=== PATIENT | male | born 1950 | race Caucasian/White ===

== ENCOUNTER 2017-01-11 20:59 | Inpatient (IN) | payer MEDICARE, OTHER ==
--- NOTE | ~2017-01-11 | A ---
[facility] Nutrition Therapy DATE: 01/13/17 Patient: HARLAN MOY Physician: DOLORES Address: [facility] Room/Bed: [address] [place] [address], Zip: [place] [address] Admit Date: 01/11/17 Date of : 48 Height: 5 2.20 Weight: 92 42 NUTRITIONAL ASSESSMENT: REASON: ENTERAL NUTRITION ASSESSMENT 66 yo male admitted for PNA PMH: Recurrent aspiration PNA, s/p PEG, osteoporosis, CP, profound MR, hypothyroidism, constipation, hemorrhiods Anthropometrics: Ht: 62.5" Wt: 42 kg BMI: 16.7 Labs: K+ 3.4 BUN 8 Creat 0.5 Ca++ 7.7 Meds: Dilantin, bisacodyl, protonix, zofran, miralax, MVI with minerals, senokot, Synthroid (via G-tube) I/O & Bowel function: 3360/13, last BM 01/12, PEG Skin Integrity: Multiple scabs scattered Redness to BL heels Edema: None noted Estimated Nutrition Needs: 0679-1323 kcals (35-40 kcals/kg) 59-76 grams protein (1.4-1.8 grams/kg) Home enteral nutrition regimen: Osmolite 1.2 @ 110 ml/hr x 10 hrs (8A-11A) AND (1P-8P) Provides: 1320 kcals/ 61 grams protein/ 902 mL free H20 Assessment: Chart reviewed, events noted. Cut Off patient admitted for PNA with h/o recurrent aspiration. Pt receives all nutrition via PEG tube. Per information in chart, the pt receives the enteral regimen as noted above. Pt has increased nutrient needs with PNA and low body weight (BMI 16.7). Of note, the pt typically receives Osmolite 1.2 and has been ordered Osmolite 1.5 at [facility]. RD recommending to continue Osmolite 1.5 while at [facility]. Please see recommendations below. Dx: Increased nutrient needs RT PMH, low body weight, Dx AEB BMI 16.7, 76% IBW. Intervention: 1. Enteral nutrition [facility] Nutrition Therapy DATE: 01/13/17 Patient: HARLAN MOY Physician: NIGKUS Address: [facility] Room/Bed: [address] [place] [address], Zip: [place] [address] Admit Date: 01/11/17 Date of : 48 Height: 5 2.20 Weight: 92 42 Monitoring, Evaluation and Goals: 1. Enteral nutrition; provide >80% goal volume 2. Labs; WNL 3. Weight; prevent weight loss, promote gradual weight gain towards healthy BMI 4. Skin; prevent breakdown Recommendations: 1. Recommend using Osmolite 1.5 while the pt is at [facility] to provide additional kcals/ mL. Continue the pt's enteral schedule, and decrease Osmolite 1.5 to 100 mL/hr from (8A-11A) and (1P-8P). This will provide: 1500 kcals/ 63 grams protein/ 760 mL free H20 PLEASE NOTE: ENTERAL NUTRIITON SHOULD BE HELD FOR ONE HOUR BEFORE AND ONE HOUR AFTER ADMINISTRATION OF SYNTHROID AND DILANTIN MEDICATIONS. RD INFORMED RN OF THIS 2. Ensure the HOB is upright at a minimum of 30-45 degrees during EN administration. Respectfully, TAY ARANGO RD, LD Food and Nutritional Services [facility] cc: client file
--- NOTE | ~2017-01-11 | CR72 ---
[facility] A Service of [facility] RADIOLOGY TEXT RESULTS PATIENT: HARLAN MOY LOCATION: [facility] 331- : 48 UNIT #: [id number] AGE: [address]: Soni Colindres MD SEX: M ORDER DR: [id number] [facility] [address] [facility]. [place], [place] [address] [id number] I MR#: [id number] Acc #: [id number] NAME: HARLAN MOY : 1950 SEX: M STUDY DATE/TIME: 01/20/2017 6:15 UNIT: [address] ROOM: [facility] STUDY DESCRIPTION: CR Chest Single View Portable Attending Physician: Soni Colindres M.D. Ordering Physician: Pérez Rosas M.D. Primary Care Physician: No Primary Care Physician MEDICAL IMAGING REPORT This report is preliminary unless electronic signature is present EXAM AP portable chest, 01/20/2017. HISTORY Pneumonia, fever. Follow up inpatient cardiopulmonary status. TECHNIQUE AP portable chest x-ray. FINDINGS The exam shows persistent patchy infiltrates in the right mid and lower lung and left medial lung base, slightly improved since the previous study of 01/14/2017. No visible airspace consolidation or pleural effusion. IMPRESSION Diffuse pulmonary infiltrates with slight radiographic improvement since 01/14/2017. Dictated by... Dionisio Cook M.D. THIS IS AN ELECTRONICALLY VERIFIED REPORT Dionisio Cook M.D. at 01/20/2017 3:54 PM DAHLIAW/gerry TD: 01/20/2017 09:47 JOB #: [id number] MEDICAL IMAGING REPORT Page 1 of 1 COPY
--- NOTE | ~2017-01-11 | HP ---
Unit #: [id number] #: [id number] Patient: HARLAN LOYA [id number] [place] [id number] [facility]. [place], [place] [address] [id number] I MR#: [id number] NAME: HARLAN LOYA. ROOM: 331 Age: 66 Sex: M Admission Date: 01/11/2017 : 1950 Attending Physician: Soni Colindres M.D. Primary Care Physician: No Primary Care Physician HISTORY AND PHYSICAL CHIEF COMPLAINT Fever, hypoxia, and pneumonia. HISTORY OF PRESENT ILLNESS Mr. Loya is a 66-year-old male who is a resident of [facility], has cerebral palsy and mental retardation. Patient is not able to provide any history. Most of the history was taken from the chart and ER notes. The patient resides at [facility]. He has history of cerebral palsy, mental retardation, dysphagia, hypothyroidism, seizure disorder. Patient most of the time goes to [facility]. This is his first admission to [facility]. Patient was diagnosed with pneumonia in [facility] a day ago and then Zosyn was started. Patient continued to have high fever and had respiratory distress. The patient was sent to ER. Patient was found to have temperature of 101 and patient was hypoxic. A chest x-ray showed bilateral lower lobe pneumonia. Patient is being admitted to telemetry unit. PAST MEDICAL HISTORY 1. Seizure disorder. 2. Cerebral palsy/mental retardation. 3. Hypothyroidism. 4. Dysphagia. 5. History of aspiration pneumonia in the past. 6. Anemia. ALLERGIES Patient allergic to hepatitis B virus vaccine. HOME MEDICATIONS 1. Nexium 40 mg at bedtime. 2. Dulcolax 10 mg at bedtime. 3. Phenobarbital 97.2 mg daily. 4. Acetaminophen 650 mg q.8. 5. Baclofen 5 mg daily. 6. Multivitamin daily. 7. Reglan 5 mg daily. 8. MiraLax 17 g twice a day. 9. Dilantin-125 suspension 100 mg daily. 10. Senna 8.6 mg daily. 11. Levoxyl 200 mcg daily. 12. Titus [place] twice a day. 13. Atrovent Nasal [place] p.r.n. Unit #: [id number] #: [id number] Patient: HARLAN LOYA SOCIAL HISTORY Again, patient is a resident of [facility]. No history of smoking. No alcohol or drug abuse. PAST SURGICAL HISTORY History of G tube placement. REVIEW OF SYSTEMS As per history of presenting illness, not able to get any other information. It is not available. PHYSICAL EXAMINATION GENERAL: The patient is lying in bed. VITAL SIGNS: Blood pressure is 137/67, respiratory rate 18, pulse 85, temperature 98.9, T-max 101.1 on admission. HEENT: Head is normocephalic. CHEST: Fair air entry, decreased at the bases. Few rales are heard. CARDIOVASCULAR: S1, S2 positive. Regular rhythm. ABDOMEN: Soft. EXTREMITIES: Negative edema. The patient does have contractures. DIAGNOSTIC STUDIES LABORATORY: Lab workup so far shows WBC 7.4, hemoglobin 11, hematocrit 32.8, platelet count 166,000. ABG was done on 2 L which shows 7.45 pH, pCO2 of 38.7, pO2 of 54.6, oxygen saturation is 90%. Sodium 134, potassium 3.6, chloride 98, BUN 14, creatinine 0.6. Liver enzymes are slightly elevated. AST 54, ALT 42, alkaline phosphatase 103. Lactic acid elevated to 2.8. Urinalysis with 2+ protein, 5-10 RBCs, 5-10 WBCs, no bacteria. IMAGING: Chest x-ray was done which shows bilateral lower lobe infiltrate. ASSESSMENT The patient is being admitted to telemetry unit with: 1. Fever: T-max of 101.1. 2. Pneumonia: Healthcare-facility acquired pneumonia bilateral lower lobe. 3. Acute hypoxic respiratory failure secondary to above. 4. Seizure disorder. 5. Hypothyroidism. 6. Cerebral palsy and mental retardation. PLAN Admit to telemetry unit. IV antibiotics are starting which is vancomycin, tobramycin, and Zosyn. Dr. David Robles is being consulted. Home medications have been reviewed and adjusted. O2 to keep saturations above 94% is starting. Labs will be repeated tomorrow morning. Please refer to progress note for further orders. The patient's code status is DNR. Dictated by Soni Colindres M.D. MICHELL/ Unit #: [id number] #: [id number] Patient: HARLAN LOYA TD: 01/12/2017 10:12 JOB #: [id number] HISTORY AND PHYSICAL Page 1 of 1 X Soni Colindres MD HISTORY AND PHYSICAL
--- NOTE | ~2017-01-11 | EKG ---
PATIENT: HARLAN MOY UNIT #: [id number] Ventricular Rate: 81 BPM Atrial Rate: 81 BPM P-R Interval: 132 ms QRS Duration: 86 ms Q-T Interval: 374 ms QTC Calculation(Bezet): 434 ms P Sharon: 76 degrees Calculated R Sharon: 101 degrees Calculated T Sharon: 81 degrees Diagnosis Line: Sinus rhythm with Premature atrial complexes Diagnosis Line: Rightward axis Diagnosis Line: Septal infarct , age undetermined Diagnosis Line: Borderline ECG Diagnosis Line: No previous ECGs available Diagnosis Line: Confirmed by CYNTHIA ISRAEL MD ([id number]) on 01/12/2017 Diagnosis Line: 4:40:46 PM INTERPRETING MD: LINDY PINON
--- NOTE | ~2017-01-11 | DS ---
Unit #: [id number] #: [id number] Patient: ARON LOYA [id number] [address] [address] [id number] I MR#: [id number] NAME: ARON LOYA ROOM: 331 Age: 66 Sex: M Admission Date: 01/11/2017 : 1950 Discharge Date: 01/20/2017 Attending Physician: Soni Colindres M.D. Primary Care Physician: No Primary Care Physician DISCHARGE SUMMARY FINAL DIAGNOSES 1. Acute respiratory failure, resolved. 2. Aspiration pneumonia. 3. Pulmonary hypertension. 4. Right ventricular systolic pressure elevated to 55. 5. Systolic ejection fraction is 60%. 6. Seizure disorder. 7. Hypothyroidism. 8. Mental retardation. 9. [place] resident. CONSULTANTS Dr. David Robles from pulmonary services. DIAGNOSTIC DATA CARDIOVASCULAR: Echocardiogram done during hospitalization showed left ventricular systolic function is normal and ejection fraction is 60%, mild concentric left ventricular hypertrophy, mild to moderate mitral valve prolapse, mild to moderate aortic regurgitation, mild to moderate risk tricuspid regurgitation, mild pulmonic valve regurgitation, right ventricular systolic pressure 55 mmHg. LABORATORY: Sodium 133, potassium 4.8, chloride 101, BUN 20, creatinine 0.7, calcium 8.2, magnesium 1.9, BNP 23 on discharge. On 01/15/2017 it was 326. CBC shows white blood cell count 6.8, hemoglobin 10.1, hematocrit 30.6, platelets 364. Blood culture was no growth. Sputum culture showed 4+ normal respiratory barry. Urine culture was no growth for 24 hours. IMAGING: Chest x-ray done on 01/20/2017 showed diffuse pulmonary infiltrate with slight radiographic improvement since 01/14/2017. DISCHARGE MEDICATIONS 1. Augmentin 875 mg p.o. b.i.d. 2. Continue the rest of the home medications. HOSPITAL COURSE Mr. Aron Loya is a 66-year-old male who is a resident of [facility], with multiple medical problems. He was admitted because of acute hypoxic respiratory failure secondary to pneumonia. The patient had bilateral pneumonia. He was started on broad spectrum IV antibiotics. Slowly it has been tapered. The patient received vancomycin, Zosyn and tobramycin. IV antibiotics are being discontinued and Augmentin is being started, Augmentin 875 mg p.o. b.i.d. for 4 more days. On room air the Unit #: [id number] #: [id number] Patient: ARON LOYA patient's pules oximetry is 96%. The patient is stable and is being transferred to [facility] in stable condition. PHYSICAL EXAMINATION VITALS: At discharge, blood pressure 143/85, respiratory rate 22, pulse 92, temperature 99.1. CHEST: Fair air entry. Decreased at the bases. HEART: S1 and S2 positive. Tachycardia. ABDOMEN: Soft. DISPOSITION The patient is being discharged to [facility] in stable condition. FOLLOWUP 1. Follow up with Dr. David Robles in one week. 2. Chest x-ray to be repeated in one week. Dictated by... Rodrigo Anguiano TD: 01/20/2017 13:10 JOB #: [id number] DISCHARGE SUMMARY Page 1 of 1 X Soni Colindres MD X DISCHARGE SUMMARY
--- NOTE | ~2017-01-11 | CR72 ---
[facility] A Service of [facility] RADIOLOGY TEXT RESULTS PATIENT: HARLAN MOY LOCATION: [place] [address] : [birth year] UNIT #: [id number] AGE: [address]: Soni Colindres MD SEX: M ORDER DR: [id number] [facility] [address] [facility]. [place], [place] [address] [id number] MR#: [id number] Acc #: [id number] NAME: HARLAN MOY : 1950 SEX: M STUDY DATE/TIME: 01/11/2017 21:19 UNIT: [place]AC[place] ROOM: STUDY DESCRIPTION: CR Chest Single View Portable Attending Physician: Trenton Rush M.D. Ordering Physician: Trenton Rush M.D. Primary Care Physician: No Primary Care Physician MEDICAL IMAGING REPORT This report is preliminary unless electronic signature is present EXAM Portable chest 01/11/2017 HISTORY Shortness of breath and fever beginning 1 day ago. FINDINGS There is no prior chest radiograph for comparison. The exam is limited by patient rotation. The heart is normal in size. There is airspace consolidation in the lower lobes bilaterally characteristic of bibasilar pneumonia. There are no pleural effusions. IMPRESSION 1. No prior chest radiograph for comparison. 2. Exam is limited by poor radiographic technique with patient rotation. 3. Infiltrates at the lung bases suggesting bibasilar pneumonia. Dictated by... Caleb Amador M.D. THIS IS AN ELECTRONICALLY VERIFIED REPORT Caleb Amador M.D. at 01/12/2017 1:15 PM NATALIA/albina TD: 01/11/2017 23:55 JOB #: [id number] MEDICAL IMAGING REPORT Page 1 of 1 COPY
--- NOTE | ~2017-01-11 | CR72 ---
[facility] A Service of [facility] RADIOLOGY TEXT RESULTS PATIENT: HARLAN MOY LOCATION: [facility] : 48 UNIT #: [id number] AGE: [address]: Soni Colindres MD SEX: M ORDER DR: [id number] [place] [id number] [facility]. [place], [place] [address] [id number] I MR#: [id number] Acc #: [id number] NAME: HARLAN MOY. : 1950 SEX: M STUDY DATE/TIME: 01/14/2017 14:18 UNIT: [address] ROOM: [address] [place] [address] DESCRIPTION: CR Chest Single View Portable Attending Physician: Soni Colindres M.D. Ordering Physician: Soni Colindres M.D. Primary Care Physician: Primary Care Physician No MEDICAL IMAGING REPORT This report is preliminary unless electronic signature is present EXAM Chest portable 01/14 COMPARISON 01/11/2017 HISTORY SUPPLIED Shortness of breath, cough and congestion beginning 01/10/2017 TECHNIQUE/COMPARISON An AP portable view is obtained and compared directly to the study of 01/11/2017. FINDINGS Cardiac size is stable. Lungs show evidence of underlying chronic lung disease. The infiltrate in the right base is increased with a new infiltrate in the left base. CONCLUSION Interim increase in right lower lobe infiltrate. New left lower lobe infiltrate. Dictated by... Esdras Cesar M.D. THIS IS AN ELECTRONICALLY VERIFIED REPORT Esdras Cesar M.D. at 01/16/2017 2:20 PM THOMASK/paolo TD: 01/14/2017 22:28 JOB #: [id number] MEDICAL IMAGING REPORT [facility] A Service of [facility] RADIOLOGY TEXT RESULTS PATIENT: HARLAN MOY LOCATION: [facility] : 48 UNIT #: [id number] AGE: [address]: Soni Colindres MD SEX: M ORDER DR: Page 1 of 1 COPY
--- NOTE | ~2017-01-11 | FU ---
[facility] Nutrition Therapy DATE: 01/17/17 Patient: HARLAN MOY Physician: DOLORES Address: [facility] Room/Bed: [address] [place] [address], Zip: [place] [address] Admit Date: 01/11/17 Date of : 48 Height: 5 2.20 Weight: 88 40 NUTRITION MONITORING/FOLLOW-UP: Reason: Enteral nutrition follow up Anthropometrics: Ht: 62.5" Adm wt: 42 kg BMI: 16.7 IBW: 55 kg, 76% IBW Wt 01/17: 40 kg Labs: Ca++ 8.1 Meds: Dilantin (@ 0900), bisacodyl, protonix, zofran, senokot, MVI with minerals, miralax, synthroid (GT @ 0600) I&O's: 1442/14, last BM 01/16 Skin: No changed noted Edema: BLE trace Estimated Nutrition Needs: 1885-7224 kcals (35-40 kcals/kg) 59-76 grams protein (1.4-1.8 grams/kg) Assessment: Chart reviewed, events noted. RN reports that the pt has been receiving Osmolite 1.5 @ 110 mL/hr from 8A-11A and from 1P-8P. RD explained to RN that it was previously recommended for the rate to be turned down since the pt is now receiving a Osmolite 1.5 instead of Osmolite 1.2. Per pump history, the pt has received 108% goal volume of enteral nutrition over the past [address] spoke with MD in pt's room, and MD reports that the pt has been fluid overloaded, and may benefit from a lower volume enteral formula at a lower rate. Pt has a history of recurrent aspiration PNA. Please see recommendations below. Dx: Increased nutrient needs RT PMH, low body weight AEB BMI 16.7, 76% IBW- ACTIVE Intervention: 1. Enteral nutrition- Osmolite 1.5 Monitoring, Evaluation and Goals: GOALS BEING MET 1. Enteral nutrition; provide >80% goal volume 2. Labs; WNL 3. Weight; promote gradual weight gain towards a healthy BMI [facility] Nutrition Therapy DATE: 01/17/17 Patient: HARLAN MOY Physician: DOLORES Address: [facility] Room/Bed: [address] [place] [address], Zip: [place] [address] Admit Date: 01/11/17 Date of : 48 Height: 5 2.20 Weight: 88 40 Recommendations: 1. Recommend using Osmolite 1.5 for the pt upon discharge to [place], as this is a lower volume enteral formula. Recommend running enteral nutrition for a longer period of time so a lower rate can be used d/t the pt's aspiration risk. PLEASE NOTE: ENTERAL NUTRITION WILL NEED TO BE HELD FOR ONE HOUR BEFORE AND ONE HOUR FOLLOWING ADMINISTRATION OF SYNTHROID AND DILANTIN. PLEASE ADJUST THE PT'S ENTERAL REGIMEN BASED ON WHEN MEDICATIONS ARE ADMINISTERED. 2. Please run enteral nutrition for a total of 12 hrs per day with Osmolite 1.5 @ 75 mL/hr x 12 hrs. (Scheduled time of enteral nutrition will need to be adjusted based on when Synthroid and Dilantin are administered) While the pt remains at [facility]: Osmolite 1.5 @ 75 mL/hr from 10A-10P for a total of 12 hrs to provide: 1440 kcals/ 60 grams protein/ 730 mL free H20 Status: Pt is at mild-moderate nutritional risk. Respectfully, TAY ARANGO RD, LD Food and Nutritional Services [facility] cc: client file
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
[~2017-01-11 20:59] MED LIST: ATROVENT NASAL15 ML; OCEAN SPRAY INH
[2017-01-11 21:09] LABS: ARTERIAL BLD GAS O2 SATURATION 90.3 % (90.0-100.0); ARTERIAL BLOOD GAS CARBOXY HB 0.3 %sat (0.0-9.0); ARTERIAL BLOOD GAS HCO3 27.1 mmol/L; ARTERIAL BLOOD GAS MET HB 0.7 %sat (0.0-2.0); ARTERIAL BLOOD GAS PCO2 38.7 mmHg (35.0-45.0); ARTERIAL BLOOD GAS pH 7.455 (7.350-7.450)
[2017-01-11 21:10] LABS: ARTERIAL BLOOD GAS ART SITE RIGHT BRACHIAL; ARTERIAL BLOOD GAS DELIVERY NASAL CANNULA; ARTERIAL BLOOD GAS PO2 54.6 mmHg (80.0-100); ARTERIAL DRAW? YES
[2017-01-11 21:18] LABS: BASOPHIL% 0.2 % (0-2.5); EOSINOPHIL% 0.1 % (0.0-7.0); HEMATOCRIT 32.8 % (38.0-50.0); LYMPHOCYTE# 0.6 X10e3 (1.0-3.5); MEAN CELL VOLUME 93.6 FL (83-96); MEAN CORPUSCULAR HEMOGLOBIN 31.4 PG (28-34); MEAN CORPUSCULAR HGB CONC 33.6 g/dL (30-36); MEAN PLATELET VOLUME 7.5 FL (6.5-11.5); MONOCYTE# 0.4 X10e3 (0-1.0); MONOCYTE% 5.2 % (3.0-12.0); NEUTROPHIL# 6.4 X10e3 (1.5-7.1); NEUTROPHIL% 86.5 % (40-75); PLATELET COUNT 162 X10e3 (140-420); RED CELL DISTRIBUTION WIDTH 13.5 % (11.0-15.5); WHITE BLOOD COUNT 7.4 X10e3 (4.0-10.5)
[2017-01-11 21:19] LABS: DIFF IND NO
[2017-01-11 21:20] LABS: POC - CKMB <1.0 ng/mL (0.0-7.9); POC - TROPONIN <0.05 ng/mL (<=0.05)
[2017-01-11 21:52] LABS: ALBUMIN SERUM 3.2 g/dL (3.5-5.0); BILIRUBIN, DIRECT 0.1 mg/dL (0.0-0.2); BILIRUBIN,INDIRECT 0.5 mg/dL (0.0-0.9); BILIRUBIN,TOTAL 0.6 mg/dL (0.2-2.0); BUN/CREATININE RATIO 23.33; CALCIUM SERUM 7.7 mg/dL (8.4-10.2); CREATININE SERUM 0.6 mg/dL (0.6-1.4); GLOM FILT RATE Estimated 103.4 mL/min (>60); POTASSIUM 3.6 mmol/L (3.5-5.1); PROTEIN TOTAL SERUM 6.6 g/dL (6.0-8.3)
[2017-01-11 22:42] LABS: URINE SOURCE CLEAN CATCH
[2017-01-11 22:48] LABS: URINE APPEARANCE CLEAR; URINE BILIRUBIN NEG (NEG); URINE BLOOD TRACE (NEG); URINE COLOR YELLOW; URINE GLUCOSE NEG (NEG); URINE KETONE NEG (NEG); URINE LEUKOCYTE ESTERASE NEG (NEG); URINE NITRATE NEG (NEG); URINE PH 5.5 (5-8); URINE PROTEIN 2+ (NEG); URINE SPECIFIC GRAVITY 1.031 (1.003-1.035)
[2017-01-11 22:52] LABS: CULTURE INDICATED? YES; U HYALINE CASTS AUWI 0-2 /[LPF]; URINE BACTERIA AUWI NEG (NEGATIVE); URINE SQUAMOUS EPITHELIAL CELL OCC /[HPF]
[2017-01-11] MEDS ORDERED: NEXIUM40 M1 GT (23:44)
[2017-01-11] MEDS ORDERED: DULCOLAX10 MG PR (23:45)
[2017-01-11] MEDS ORDERED: PHENOBARBITAL97.2 MG GT (23:46)
[2017-01-11] MEDS ORDERED: APAP325 MG GT (23:47)
[2017-01-11] MEDS ORDERED: BACLOFEN10 MG GT (23:48)
[2017-01-11] MEDS ORDERED: REGLAN5 MG GT (23:49)
[2017-01-11] MEDS ORDERED: THERAGRAN-M PR1 EACH GT (23:49)
[2017-01-11] MEDS ORDERED: DILANTIN GT ×2 (23:50→23:55)
[2017-01-11] MEDS ORDERED: MIRALAX17 GM GT (23:50)
[2017-01-11] MEDS ORDERED: SENNA-TABS8.6 MG GT (23:56)
[2017-01-11] MEDS ORDERED: LEVOXYL175 MC1 GT (23:57)
[2017-01-11] MEDS ORDERED: SYNTHROID25 MCG GT (23:58)
[2017-01-13 05:56] LABS: HEMATOCRIT 28.8 % (38.0-50.0); HEMOGLOBIN 9.6 gm/dL (13.0-16.0); MEAN CELL VOLUME 93.9 FL (83-96); MEAN CORPUSCULAR HEMOGLOBIN 31.3 PG (28-34); MEAN CORPUSCULAR HGB CONC 33.3 g/dL (30-36); MEAN PLATELET VOLUME 7.8 FL (6.5-11.5); RED BLOOD COUNT 3.06 X10e (3.90-5.60); RED CELL DISTRIBUTION WIDTH 13.5 % (11.0-15.5); WHITE BLOOD COUNT 4.2 X10e3 (4.0-10.5)
[2017-01-13 07:08] LABS: CALCIUM SERUM 7.7 mg/dL (8.4-10.2); CREATININE SERUM 0.5 mg/dL (0.6-1.4); GLOM FILT RATE Estimated 111.4 mL/min (>60); POTASSIUM 3.4 mmol/L (3.5-5.1)
[2017-01-14 08:30] LABS: HEMATOCRIT 30.4 % (38.0-50.0); HEMOGLOBIN 9.9 gm/dL (13.0-16.0); MEAN CELL VOLUME 93.7 FL (83-96); MEAN CORPUSCULAR HEMOGLOBIN 30.6 PG (28-34); MEAN CORPUSCULAR HGB CONC 32.7 g/dL (30-36); MEAN PLATELET VOLUME 7.7 FL (6.5-11.5); RED BLOOD COUNT 3.24 X10e (3.90-5.60); RED CELL DISTRIBUTION WIDTH 13.3 % (11.0-15.5); WHITE BLOOD COUNT 4.7 X10e3 (4.0-10.5)
[2017-01-14 09:07] LABS: CALCIUM SERUM 7.8 mg/dL (8.4-10.2); CREATININE SERUM 0.5 mg/dL (0.6-1.4); GLOM FILT RATE Estimated 111.4 mL/min (>60); POTASSIUM 3.6 mmol/L (3.5-5.1)
[2017-01-15 07:05] LABS: BUN/CREATININE RATIO 16.66; CALCIUM SERUM 8.1 mg/dL (8.4-10.2); CREATININE SERUM 0.6 mg/dL (0.6-1.4); GLOM FILT RATE Estimated 103.4 mL/min (>60); POTASSIUM 4.3 mmol/L (3.5-5.1)
[2017-01-16 06:21] LABS: HEMATOCRIT 27.5 % (38.0-50.0); HEMOGLOBIN 9.2 gm/dL (13.0-16.0); MEAN CELL VOLUME 93.3 FL (83-96); MEAN CORPUSCULAR HEMOGLOBIN 31.1 PG (28-34); MEAN CORPUSCULAR HGB CONC 33.4 g/dL (30-36); MEAN PLATELET VOLUME 7.6 FL (6.5-11.5); RED BLOOD COUNT 2.95 X10e (3.90-5.60); RED CELL DISTRIBUTION WIDTH 13.7 % (11.0-15.5)
[2017-01-16 06:40] LABS: WHITE BLOOD COUNT 10.2 X10e3 (4.0-10.5)
[2017-01-16 06:58] LABS: CALCIUM SERUM 7.7 mg/dL (8.4-10.2); CREATININE SERUM 0.5 mg/dL (0.6-1.4); GLOM FILT RATE Estimated 111.4 mL/min (>60); POTASSIUM 3.6 mmol/L (3.5-5.1)
[2017-01-17 06:33] LABS: CALCIUM SERUM 8.1 mg/dL (8.4-10.2); CREATININE SERUM 0.6 mg/dL (0.6-1.4); GLOM FILT RATE Estimated 103.4 mL/min (>60); POTASSIUM 4.7 mmol/L (3.5-5.1)
[2017-01-18 07:50] LABS: CALCIUM SERUM 8.3 mg/dL (8.4-10.2); CREATININE SERUM 0.6 mg/dL (0.6-1.4); GLOM FILT RATE Estimated 103.4 mL/min (>60); POTASSIUM 4.3 mmol/L (3.5-5.1)
[2017-01-19 13:37] LABS: HEMATOCRIT 33.6 % (38.0-50.0); MEAN CELL VOLUME 95.3 FL (83-96); MEAN CORPUSCULAR HEMOGLOBIN 31.1 PG (28-34); MEAN CORPUSCULAR HGB CONC 32.6 g/dL (30-36); MEAN PLATELET VOLUME 8.1 FL (6.5-11.5); RED BLOOD COUNT 3.53 X10e (3.90-5.60); RED CELL DISTRIBUTION WIDTH 14.1 % (11.0-15.5); WHITE BLOOD COUNT 5.6 X10e3 (4.0-10.5)
[2017-01-19 14:10] LABS: CALCIUM SERUM 8.2 mg/dL (8.4-10.2); CREATININE SERUM 0.6 mg/dL (0.6-1.4); GLOM FILT RATE Estimated 103.4 mL/min (>60); POTASSIUM 4.8 mmol/L (3.5-5.1)
[2017-01-20 05:52] LABS: HEMATOCRIT 30.6 % (38.0-50.0); HEMOGLOBIN 10.1 gm/dL (13.0-16.0); MEAN CELL VOLUME 93.3 FL (83-96); MEAN CORPUSCULAR HEMOGLOBIN 30.7 PG (28-34); MEAN PLATELET VOLUME 7.3 FL (6.5-11.5); RED BLOOD COUNT 3.28 X10e (3.90-5.60); RED CELL DISTRIBUTION WIDTH 13.9 % (11.0-15.5); WHITE BLOOD COUNT 6.8 X10e3 (4.0-10.5)
[2017-01-20 06:46] LABS: BUN/CREATININE RATIO 28.57; CALCIUM SERUM 8.2 mg/dL (8.4-10.2); CREATININE SERUM 0.7 mg/dL (0.6-1.4); MAGNESIUM 1.9 mg/dL (1.6-3.0); PHOSPHOROUS 3.5 mg/dL (2.5-4.6); POTASSIUM 4.8 mmol/L (3.5-5.1)
== END 2017-01-20 15:59 | DRG 177 ==
LOC: CED 20:59 → CEDOF 23:40 → C3A PCU 01-12 02:10
PROVIDERS: Emergency Medicine; Hospitalist; Internal Medicine; Physician Assistant Medical
PROC: B246YZZ Ultrasonography of Right and Left Heart using Other Contrast (ICD-10-PCS; principal; 2017-01-17)
DX: J69.0 Pneumonitis due to inhalation of food and vomit (principal); J96.01 Acute respiratory failure with hypoxia; R53.2 Functional quadriplegia; F73 Profound intellectual disabilities; Z68.1 Body mass index [BMI] 19.9 or less, adult; I27.2 Other secondary pulmonary hypertension; G40.909 Epilepsy, unspecified, not intractable, without status epilepticus; E03.9 Hypothyroidism, unspecified; G80.9 Cerebral palsy, unspecified; M81.0 Age-related osteoporosis without current pathological fracture; Z88.7 Allergy status to serum and vaccine; I34.1 Nonrheumatic mitral (valve) prolapse; I35.1 Nonrheumatic aortic (valve) insufficiency; I34.0 Nonrheumatic mitral (valve) insufficiency; R63.6 Underweight; E87.6 Hypokalemia; D64.9 Anemia, unspecified; K59.00 Constipation, unspecified
CPT/HCPCS: 36415; 36600; 51701; 71010; 80048; 80076; 80185; 80200; 80202; 81003; 82553; 82803; 83605; 83615; 83735; 83880; 84100; 84443; 84484; 85025; 85027; 87040; 87070; 87086; 87205; 93005; 93306; 94640; 94760; 96365; 96367; 99285; J1650; J1940; J2405; J2543; J3260; J3370

== ENCOUNTER 2017-02-20 21:00 | Emergency (ER) | payer MEDICARE, OTHER ==
--- NOTE | ~2017-02-20 | CT4 ---
[facility] A Service of [facility] / [facility] RADIOLOGY TEXT RESULTS PATIENT: HARLAN MOY LOCATION: [facility] : 46 UNIT #: [id number] AGE: [address]: Elvis Judd MD SEX: M ORDER DR: [id number] [facility] [address] [place], [place] [address] [id number] MR#: [id number] Acc #: [id number] NAME: HARLAN MOY. : 1950 SEX: M STUDY DATE/TIME: 02/20/2017 23:20 UNIT: [facility] ROOM: STUDY DESCRIPTION: CT Abd and Pelv Wo Cont Attending Physician: Elvis Judd M.D. Ordering Physician: Elvis Judd M.D. Primary Care Physician: Maida Floyd Aprn MEDICAL IMAGING REPORT This report is preliminary unless electronic signature is present EXAM Abdomen and pelvis CT, 02/20 23:20 INDICATIONS Abdominal pain today. TECHNIQUE Axial images were obtained through the abdomen and pelvis without contrast. Multiplanar reformats were obtained. No comparison CT. This CT exam was performed with one or more of the following radiation dose reduction techniques: Automatic exposure control, adjustment of mA and/or kV according to patient size, and iterative reconstruction. FINDINGS ABDOMEN: Lung bases are clear except for some mild scarring or atelectasis in the right middle lobe. There is artifact on the exam from the patient's arms. There is severe right side hydronephrosis, which appears longstanding as there is marked right side renal cortical thinning. The left kidney is normal. No right side obstructing lesion is seen and this could be due to a severe UPJ stenosis. Unenhanced solid organs are otherwise grossly normal. Gastrostomy tube is placed within the body of the stomach. The remainder of the GI tract is grossly normal, allowing for artifact and the lack of contrast. PELVIS: No lower ureteral stones are seen. The urinary bladder is normal. [place] soft tissue noted in both inguinal canals. While nonspecific, this could reflect the testicles. Correlate with physical exam findings. There is thickening of the rectum with adjacent fat stranding compatible with proctitis. IMPRESSION 1. Severe right hydronephrosis, which appears to be longstanding as there is marked right renal cortical thinning. No obstructing lesion [facility]. [facility] A Service of [facility] RADIOLOGY TEXT RESULTS PATIENT: HARLAN MOY LOCATION: [facility] : 46 UNIT #: [id number] AGE: [address]: Elvis Judd MD SEX: M ORDER DR: is seen, and this may be due to severe UPJ stenosis. The left kidney is normal and nonobstructed. 2. Limited evaluation of the GI tract due to the lack of oral contrast and the lack of intraabdominal fat as a natural contrast medium. No bowel obstruction is seen. There is wall thickening in the rectum with adjacent fat stranding consistent with proctitis. What may be a contrast-filled appendix in the right lower quadrant is normal. 3. Symmetrical soft tissue changes at both inguinal canals may reflect the testicles. Correlate with physical exam findings. 4. Well-positioned gastrostomy tube in the body of the stomach. Dictated by... Trenton Trujillo Jr., M.D. THIS IS AN ELECTRONICALLY VERIFIED REPORT Trenton Trujillo Jr., M.D. at 02/24/2017 8:36 AM MERYL/libby TD: 02/21/2017 00:52 JOB #: [id number] MEDICAL IMAGING REPORT Page 1 of 1 COPY
[~2017-02-20 21:00] MED LIST changes: +APAP325 MG GT; +BACLOFEN10 MG GT; +DILANTIN GT; +DULCOLAX10 MG PR; +LEVOXYL175 MC1 GT; +MIRALAX17 GM GT; +NEXIUM40 M1 GT; +PHENOBARBITAL97.2 MG GT; +REGLAN5 MG GT; +SENNA-TABS8.6 MG GT; +SYNTHROID25 MCG GT; +THERAGRAN-M PR1 EACH GT
[2017-02-21 01:02] LABS: BASOPHIL% 0.7 % (0-2.5); EOSINOPHIL# 0.1 X10e3 (0-0.7); EOSINOPHIL% 1.8 % (0.0-7.0); HEMATOCRIT 34.3 % (38.0-50.0); HEMOGLOBIN 11.3 gm/dL (13.0-16.0); LYMPHOCYTE% 27.7 % (17.0-45.0); MEAN CELL VOLUME 92.7 FL (83-96); MEAN CORPUSCULAR HEMOGLOBIN 30.5 PG (28-34); MEAN CORPUSCULAR HGB CONC 32.8 g/dL (30-36); MEAN PLATELET VOLUME 8.3 FL (6.5-11.5); MONOCYTE# 0.5 X10e3 (0-1.0); MONOCYTE% 12.5 % (3.0-12.0); NEUTROPHIL# 2.2 X10e3 (1.5-7.1); NEUTROPHIL% 57.3 % (40-75); PLATELET COUNT 176 X10e3 (140-420); RED CELL DISTRIBUTION WIDTH 13.8 % (11.0-15.5); WHITE BLOOD COUNT 3.8 X10e3 (4.0-10.5)
[2017-02-21 01:05] LABS: DIFF IND NO
[2017-02-21 01:23] LABS: CREATININE SERUM 0.5 mg/dL (0.6-1.4); GLOM FILT RATE Estimated 111.4 mL/min (>60); POTASSIUM 4.2 mmol/L (3.5-5.1)
[2017-02-21 02:44] LABS: URINE SOURCE CLEAN CATCH
[2017-02-21 02:50] LABS: URINE APPEARANCE CLEAR; URINE BILIRUBIN NEG (NEG); URINE BLOOD NEG (NEG); URINE COLOR YELLOW; URINE GLUCOSE NEG (NEG); URINE KETONE NEG (NEG); URINE LEUKOCYTE ESTERASE TRACE (NEG); URINE NITRATE NEG (NEG); URINE PROTEIN NEG (NEG); URINE SPECIFIC GRAVITY 1.006 (1.003-1.035); URINE UROBILINOGEN 0.2 MG/DL (NEG)
[2017-02-21 02:52] LABS: URBCS1 AUWI 0-2 /[HPF] (0-2); URINE BACTERIA AUWI NEG (NEGATIVE); UWBCS1 AUWI 0-2 (0-5)
[2017-02-21 03:01] LABS: CULTURE INDICATED? NO
[2017-02-21 03:03] LABS: URINE SQUAMOUS EPITHELIAL CELL OCC /[HPF]
== END 2017-02-21 05:38 | disposition home or self-care (01) ==
LOC: CED 21:00
PROVIDERS: Emergency Medicine
DX: N13.30 Unspecified hydronephrosis (principal); Z88.7 Allergy status to serum and vaccine; Z88.8 Allergy status to other drugs, medicaments and biological substances; Z79.899 Other long term (current) drug therapy
CPT/HCPCS: 36415; 51701; 74176; 76770; 80048; 81003; 85025; 99284

== ENCOUNTER → 2017-03-27 | Outpatient (CLI) | payer MEDICARE, OTHER | END | disposition home or self-care (01) | LOC: CSSDAY 10:00 | DX: M81.0 Age-related osteoporosis without current pathological fracture (principal) | CPT/HCPCS: 96372; J0897 ==